=== PATIENT | female | born 1980 | race Caucasian/White ===

== ENCOUNTER 2018-06-10 21:33 | Emergency (ER) | payer BC ==
[2018-06-10] MEDS ORDERED: ONDANSETRON 4 MG (ODT) TAB ONE (22:49)
[2018-06-10] MEDS ORDERED: HYDROCODONE/APAP 5/325 MG TAB ONE (22:49)
[2018-06-10] MEDS ORDERED: KETOROLAC 30 MG/ML INJ ONE (22:49)
--- NOTE | 2018-06-10 23:03 | ER ---
Nurse's Notes [facility] Name: Kaykay Pandey Age: 38 yrs Sex: Female : 1980 Arrival Date: 06/10/2018 Time: 21:35 Bed 24 Private MD: Phillip Peterson E Diagnosis: GASTROCNEMIUS RUPTURE Presentation: 06/10 21:40 Presenting complaint: Patient states: "I was running in soft ball and something popped aj1 in my calf and now when I put any pressure on it it feels like a Lalo horse each time. I'm having a hard time straightening my leg it hurts." Reports pain to the right leg. Transition of care: patient was not received from another setting of care. Onset of symptoms was June 10, 2018 at 21:00. Risk Assessment: Do you want to hurt yourself or someone else? Patient reports no desire to harm self or others. Initial Sepsis Screen: Does the patient meet any 2 criteria? No. Patient's initial sepsis screen is negative. Does the patient have a suspected source of infection? No. Patient's initial sepsis screen is negative. Care prior to arrival: None. 21:40 Method Of Arrival: Wheelchair aj1 21:40 Acuity: BRENDA 4 aj1 Triage Assessment: 21:43 General: Appears in no apparent distress. comfortable, Behavior is calm, cooperative, aj1 appropriate for age. Pain: Complains of pain in medial aspect of right calf Pain currently is 8 out of 10 on a pain scale. Neuro: Level of Consciousness is awake, alert, obeys commands, Oriented to person, place, time, situation. Cardiovascular: Patient's skin is warm and dry. Respiratory: Airway is patent Respiratory effort is even, unlabored, Respiratory pattern is regular, symmetrical. 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 - Ebola Screening: : Patient denies travel to an Ebola-affected area in the 21 days before illness onset. Screenin:10 Abuse screen: Denies threats or abuse. Nutritional screening: No deficits noted. jb4 Tuberculosis screening: No symptoms or risk factors identified. Fall Risk None identified. Assessment: 22:10 General: Appears in no apparent distress. uncomfortable, Behavior is calm, cooperative, jb4 appropriate for age. Pain: Complains of pain in right calf Pain does not radiate. Pain currently is 8 out of 10 on a pain scale. at worst was 10 out of 10 on a pain scale. Quality of pain is described as sharp, Is continuous. Neuro: Level of Consciousness is awake, alert, obeys commands, Oriented to person, place, time, situation. Cardiovascular: Patient's skin is warm and dry. Pulses are 2+ in right dorsalis pedis artery are 3+ in left dorsalis pedis artery. Respiratory: Airway is patent Respiratory effort is even, unlabored, Respiratory pattern is regular, symmetrical. GI: No signs and/or symptoms were reported involving the gastrointestinal system. : No signs and/or symptoms were reported regarding the genitourinary system. EENT: No signs and/or symptoms were reported regarding the EENT system. Derm: Skin is intact, Skin is pink, warm \\T\\ dry. Musculoskeletal: Circulation, motion, and sensation intact. Capillary refill < 3 seconds, in bilateral toes. Range of motion: limited in right ankle. 23:00 Reassessment: Patient appears in no apparent distress at this time. Patient and/or jb4 family updated on plan of care and expected duration. Pain level reassessed. Patient is alert, oriented x 3, equal unlabored respirations, skin warm/dry/pink. Patient states feeling better. Vital Signs: 21:43 BP 114 / 86; Pulse 73; Resp 18; Temp 98.6; Pulse Ox 99% on R/A; Weight 99.79 kg (R); aj1 Height 5 ft. 1 in. (154.94 cm) (R); Pain 8/10; 21:43 Body Mass Index 41.57 (99.79 kg, 154.94 cm) aj1 ED Course: 21:35 Patient arrived in ED. do 21:35 Phillip Peterson MD is Private Physician. do 21:42 Triage completed. aj1 21:43 Arm band placed on Patient placed in an exam room. aj1 21:59 Eric Escobar RN is Primary Nurse. jb4 22:10 Patient has correct armband on for positive identification. Bed in low position. Call jb4 light in reach. Side rails up X 1. Pulse ox on. NIBP on. 22:17 Israel Baca MD is Attending Physician. tw4 22:54 Orthoglass splint: Posterior short lleg splint applied on right leg. Splint checked by jb4 Dr. Baca. 22:59 Phillip Peterson MD is Referral Physician. tw4 23:00 Harris Zurita MD is Referral Physician. tw4 23:00 No provider procedures requiring assistance completed. Patient did not have IV access jb4 during this emergency room visit. Administered Medications: 22:40 Drug: TORadol 60 mg Route: IM; Site: right gluteus; jb4 23:10 Follow up: Response: No adverse reaction; Pain is decreased jb4 22:49 Drug: Zofran 4 mg Route: PO; jb4 06/11 00:08 Follow up: Response: No adverse reaction jb4 06/10 22:50 Drug: [place] 5 mg-325 mg 2 tabs Route: PO; jb4 23:10 Follow up: Response: No adverse reaction; Pain is decreased jb4 Outcome: 23:02 Discharge ordered by . tw4 23:05 Discharged to home with crutches, with family. jb4 23:05 Condition: stable 23:05 Discharge instructions given to patient, family, Instructed on discharge instructions, follow up and referral plans. medication usage, crutch walking, Demonstrated understanding of instructions, follow-up care, medications, Prescriptions given X 3. 06/11 00:09 Patient left the ED. jb4 Signatures: Sara Escobedo RN RN aj1 Tawnya Del Castillo James RN RN jb4 Israel Baca MD MD tw4 Corrections: (The following items were deleted from the chart) 00:52 06/10 23:05 Discharge instructions given to patient, family, Instructed on discharge jb4 instructions, follow up and referral plans. medication usage, crutch walking, Demonstrated understanding of instructions, follow-up care, medications, Prescriptions given X 1, jb4
--- NOTE | 2018-06-10 23:03 | EDPHYS ---
Physician Documentation [facility] Name: Kaykay Pandey Age: 38 yrs Sex: Female : 1980 Arrival Date: 06/10/2018 Time: 21:35 Bed 24 Private MD: Phillip Peterson E ED Physician Israel Baca HPI: 06/11 06:28 This 38 yrs old Female presents to ER via Wheelchair with complaints of Leg tw4 Pain. 06:28 The patient presents with decreased range of motion, an injury. The complaints affect tw4 the right calf. Context: The problem was sustained outdoors, resulted from playing sports, running. Onset: The symptoms/episode began/occurred today. Modifying factors: The symptoms are alleviated by nothing. Associated signs and symptoms: The patient has no apparent associated signs or symptoms. Severity of symptoms: At their worst the symptoms were moderate. The patient has not experienced similar symptoms in the past. 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 - Ebola Screening: : Patient denies travel to an Ebola-affected area in the 21 days before illness onset. ROS: 06/11 06:28 Constitutional: Negative for fever, chills, and weight loss, Eyes: Negative for injury, tw4 pain, redness, and discharge, Cardiovascular: Negative for chest pain, palpitations, and edema, Respiratory: Negative for shortness of breath, cough, wheezing, and pleuritic chest pain, Abdomen/GI: Negative for abdominal pain, nausea, vomiting, diarrhea, and constipation, Back: Negative for injury and pain, Skin: Negative for injury, rash, and discoloration. MS/extremity: Positive for pain, tenderness. Exam: 06:28 Constitutional: This is a well developed, well nourished patient who is awake, alert, tw4 and in no acute distress. Head/Face: Normocephalic, atraumatic. Chest/axilla: Normal chest wall appearance and motion. Nontender with no deformity. No lesions are appreciated. Cardiovascular: Regular rate and rhythm with a normal S1 and S2. No gallops, murmurs, or rubs. Normal PMI, no JVD. No pulse deficits. Respiratory: Lungs have equal breath sounds bilaterally, clear to auscultation and percussion. No rales, rhonchi or wheezes noted. No increased work of breathing, no retractions or nasal flaring. Abdomen/GI: Soft, non-tender, with normal bowel sounds. No distension or tympany. No guarding or rebound. No evidence of tenderness throughout. Neuro: Awake and alert, GCS 15, oriented to person, place, time, and situation. Cranial nerves II-XII grossly intact. Motor strength 5/5 in all extremities. Sensory grossly intact. Cerebellar exam normal. Normal gait. 06:28 Musculoskeletal/extremity: Extremities: grossly normal except: noted in the right calf: decreased ROM, pain. Vital Signs: 06/10 21:43 BP 114 / 86; Pulse 73; Resp 18; Temp 98.6; Pulse Ox 99% on R/A; Weight 99.79 kg (R); aj1 Height 5 ft. 1 in. (154.94 cm) (R); Pain 8/10; 21:43 Body Mass Index 41.57 (99.79 kg, 154.94 cm) [facility] MDM: 22:17 Patient medically screened. tw4 06/11 06:28 Data reviewed: vital signs, nurses notes. Data interpreted: Pulse oximetry:. tw4 Counseling: I had a detailed discussion with the patient and/or guardian regarding: the historical points, exam findings, and any diagnostic results supporting the discharge/admit diagnosis, the presence of at least one elevated blood pressure reading (>120/80) during this emergency department visit. Medication response: Response to treatment: the patient's symptoms have markedly improved after treatment. 06/10 22:31 Order name: Posterior Leg Splint; Complete Time: 22:51 tw4 06/10 22:31 Order name: Crutches; Complete Time: 00:08 tw4 Administered Medications: 06/10 22:40 Drug: TORadol 60 mg Route: IM; Site: right gluteus; 4 23:10 Follow up: Response: No adverse reaction; Pain is decreased jb4 22:49 Drug: Zofran 4 mg Route: PO; jb4 06/11 00:08 Follow up: Response: No adverse reaction jb4 06/10 22:50 Drug: [place] 5 mg-325 mg 2 tabs Route: PO; jb4 23:10 Follow up: Response: No adverse reaction; Pain is decreased jb4 Disposition: 06/10/18 23:02 Discharged to Home. Impression: GASTROCNEMIUS RUPTURE. - Condition is Stable. - Discharge Instructions: Muscle Strain. - Prescriptions for Ibuprofen 800 mg Oral Tablet - take 1 tablet by ORAL route every 8 hours As needed take with food; 30 tablet. Tylenol- Codeine #3 300-30 mg Oral Tablet - take 2 tablet by ORAL route every 6 hours As needed; 6 tablet. Crutches - One pair of Adult crutches. - Medication Reconciliation Form, Thank You Letter, Antibiotic Education, Prescription Opioid Use form. - Follow up: Phillip Peterson MD; When: Upon discharge from the Emergency Department; Reason: If symptoms return, Recheck today's complaints, Continuance of care. Follow up: Harris Zurita MD; When: Upon discharge from the Emergency Department; Reason: If symptoms return, Recheck today's complaints, Continuance of care. - Problem is new. - Symptoms have improved. Signatures: Sara Escobedo RN RN aj1 Eric Escobar RN RN jb4 Israel Baca MD MD tw4 Corrections: (The following items were deleted from the chart) 06/11 00:09 06/10 23:02 06/10/2018 23:02 Discharged to Home. Impression: GASTROCNEMIUS RUPTURE. jb4 Condition is Stable. Forms are Medication Reconciliation Form, Thank You Letter, Antibiotic Education, Prescription Opioid Use. Follow up: Phillip Peterson; When: Upon discharge from the Emergency Department; Reason: If symptoms return, Recheck today's complaints, Continuance of care. Follow up: Harris Zurita; When: Upon discharge from the Emergency Department; Reason: If symptoms return, Recheck today's complaints, Continuance of care. Problem is new. Symptoms have improved. tw4
[2018-06-11 02:04] VITALS: BP 114/86; TEMP 98.6; O2SAT 99
== END 2018-06-11 00:09 | disposition home or self-care (01) ==
LOC: ER 21:33
DX: S86.111A Strain of other muscle(s) and tendon(s) of posterior muscle group at lower leg level, right leg, initial encounter (principal); Y93.79 Activity, other specified sports and athletics; Y93.02 Activity, running; Z88.5 Allergy status to narcotic agent
CPT/HCPCS: 96372; 99284

== ENCOUNTER 2018-07-10 12:29 | Emergency (ER) | payer BC ==
--- NOTE | 2018-07-10 13:20 | ER ---
Nurse's Notes [facility] Name: Kaykay Pandey Age: 38 yrs Sex: Female : 1980 Arrival Date: 07/10/2018 Time: 12:31 Bed 23 Private MD: Diagnosis: Acute laryngitis Presentation: 07/10 12:35 Presenting complaint: Patient states: Sore throat, hoarseness of voice, nasal aj congestion and drainage since Wednesday with reported low grade fever today. Transition of care: patient was not received from another setting of care. Onset of symptoms was July 08, 2018. Risk Assessment: Do you want to hurt yourself or someone else? Patient reports no desire to harm self or others. Initial Sepsis Screen: Does the patient meet any 2 criteria? No. Patient's initial sepsis screen is negative. Does the patient have a suspected source of infection? No. Patient's initial sepsis screen is negative. Care prior to arrival: None. 12:35 Method Of Arrival: Ambulatory aj 12:35 Acuity: BRENDA 4 aj Triage Assessment: 12:36 General: Appears in no apparent distress. comfortable, Behavior is calm, cooperative, aj appropriate for age. Pain: Denies pain. EENT: Reports pain when swallowing. Neuro: Level of Consciousness is awake, alert, obeys commands, Oriented to person, place, time, situation, Appropriate for age. Respiratory: Reports cough that is Airway is patent Respiratory effort is even, unlabored, Respiratory pattern is regular, symmetrical. Derm: Skin is pink, warm \T\ dry. normal. 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 - Social history:: Smoking status: Patient/guardian denies using tobacco. - Ebola Screening: : Patient negative for fever greater than or equal to 101.5 degrees Fahrenheit, and additional compatible Ebola Virus Disease symptoms Patient denies exposure to infectious person Patient denies travel to an Ebola-affected area in the 21 days before illness onset No symptoms or risks identified at this time. Screenin:45 Abuse screen: Denies threats or abuse. Abuse screen: Denies threats or abuse. la1 Nutritional screening: No deficits noted. Tuberculosis screening: No symptoms or risk factors identified. Fall Risk None identified. Assessment: 12:45 General: Appears in no apparent distress. Behavior is calm, cooperative. Neuro: Level la1 of Consciousness is awake, alert, obeys commands, Oriented to person, place, time, situation. Cardiovascular: Capillary refill < 3 seconds Patient's skin is warm and dry. Respiratory: Airway is patent Respiratory effort is even, unlabored, Respiratory pattern is regular, symmetrical, Breath sounds are clear bilaterally. EENT: Throat is reddened. Vital Signs: 12:36 BP 134 / 64; Pulse 77; Resp 18; Temp 98.6; Pulse Ox 98% on R/A; Weight 99.79 kg; Height aj 5 ft. 1 in. (154.94 cm); 12:36 Body Mass Index 41.57 (99.79 kg, 154.94 cm) aj ED Course: 12:31 Patient arrived in ED. as 12:33 Ny Castro FNP-C is PHCP. snw 12:33 Augustin Jenkins MD is Attending Physician. snw 12:36 Triage completed. aj 12:36 Arm band placed on right wrist. Patient placed in an exam room. aj 12:44 Rafael Gleason, VALERIY is Primary Nurse. la1 12:44 Strep Sent. la1 12:45 Call light in reach. Side rails up X 1. la1 12:45 Flu Sent. la1 12:46 No provider procedures requiring assistance completed. Patient did not have IV access la1 during this emergency room visit. Administered Medications: 13:42 Drug: predniSONE 60 mg Route: PO; la1 13:42 Follow up: Response: Medication administered at discharge. la1 13:42 Drug: Pepcid 20 mg Route: PO; la1 13:43 Follow up: Response: Medication administered at discharge. la1 Outcome: 13:19 Discharge ordered by . snw 13:43 Discharged to home ambulatory. la1 13:43 Condition: stable 13:43 Discharge instructions given to patient, Instructed on discharge instructions, follow up and referral plans. medication usage, Demonstrated understanding of instructions, follow-up care, medications, Prescriptions given X 1. 13:43 Patient left the ED. la1 Signatures: Telma Denise RN RN Ny Bradley, METER/RELAY CRAFTSMAN-C METER/RELAY CRAFTSMAN-Csnw Tamara Andino Lee, RN RN la1
--- NOTE | 2018-07-10 13:20 | EDPHYS ---
Physician Documentation [facility] Name: Kaykay Pandey Age: 38 yrs Sex: Female : 1980 Arrival Date: 07/10/2018 Time: 12:31 Bed 23 Private MD: ED Physician Augustin Jenkins HPI: 07/10 13:12 This 38 yrs old Female presents to ER via Ambulatory with complaints of snw Fever, Sore Throat. 13:12 The patient reports fever, not measured (subjective). Onset: The symptoms/episode snw began/occurred suddenly, 3 day(s) ago. Severity of symptoms: At their worst the symptoms were moderate. It is unknown whether or not the patient has had similar symptoms in the past. It is unknown whether or not the patient has recently seen a physician. 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 - Social history:: Smoking status: Patient/guardian denies using tobacco. - Ebola Screening: : Patient negative for fever greater than or equal to 101.5 degrees Fahrenheit, and additional compatible Ebola Virus Disease symptoms Patient denies exposure to infectious person Patient denies travel to an Ebola-affected area in the 21 days before illness onset No symptoms or risks identified at this time. ROS: 13:11 Eyes: Negative for injury, pain, redness, and discharge. snw 13:11 Neck: Negative for injury, pain, and swelling, Cardiovascular: Negative for chest pain, palpitations, and edema, Abdomen/GI: Negative for abdominal pain, nausea, vomiting, diarrhea, and constipation, Back: Negative for injury and pain, : Negative for injury, bleeding, discharge, and swelling, MS/Extremity: Negative for injury and deformity, Skin: Negative for injury, rash, and discoloration, Neuro: Negative for headache, weakness, numbness, tingling, and seizure. 13:11 Constitutional: Positive for fatigue, fever, malaise. 13:11 ENT: Positive for sore throat. 13:11 Respiratory: Positive for cough. Exam: 13:11 Constitutional: This is a well developed, well nourished patient who is awake, alert, snw and in no acute distress. Head/Face: Normocephalic, atraumatic. Eyes: Pupils equal round and reactive to light, extra-ocular motions intact. Lids and lashes normal. Conjunctiva and sclera are non-icteric and not injected. Cornea within normal limits. Periorbital areas with no swelling, redness, or edema. Neck: Trachea midline, no thyromegaly or masses palpated, and no cervical lymphadenopathy. Supple, full range of motion without nuchal rigidity, or vertebral point tenderness. No Meningismus. Chest/axilla: Normal chest wall appearance and motion. Nontender with no deformity. No lesions are appreciated. Cardiovascular: Regular rate and rhythm with a normal S1 and S2. No gallops, murmurs, or rubs. Normal PMI, no JVD. No pulse deficits. Respiratory: Lungs have equal breath sounds bilaterally, clear to auscultation and percussion. No rales, rhonchi or wheezes noted. No increased work of breathing, no retractions or nasal flaring. Abdomen/GI: Soft, non-tender, with normal bowel sounds. No distension or tympany. No guarding or rebound. No evidence of tenderness throughout. Back: No spinal tenderness. No costovertebral tenderness. Full range of motion. Skin: Warm, dry with normal turgor. Normal color with no rashes, no lesions, and no evidence of cellulitis. MS/ Extremity: Pulses equal, no cyanosis. Neurovascular intact. Full, normal range of motion. Neuro: Awake and alert, GCS 15, oriented to person, place, time, and situation. Cranial nerves II-XII grossly intact. Motor strength 5/5 in all extremities. Sensory grossly intact. Cerebellar exam normal. Normal gait. Psych: Awake, alert, with orientation to person, place and time. Behavior, mood, and affect are within normal limits. 13:11 ENT: External ear(s): are unremarkable, TM's: are normal, Nose: is normal, Mouth: is normal, Posterior pharynx: erythema, that is mild, Voice: is hoarse. Vital Signs: 12:36 BP 134 / 64; Pulse 77; Resp 18; Temp 98.6; Pulse Ox 98% on R/A; Weight 99.79 kg; Height aj 5 ft. 1 in. (154.94 cm); 12:36 Body Mass Index 41.57 (99.79 kg, 154.94 cm) aj MDM: 12:39 Patient medically screened. snw 13:19 Data reviewed: vital signs, nurses notes. Data interpreted: Pulse oximetry: on room air snw is 98 %. Interpretation: normal. Counseling: I had a detailed discussion with the patient and/or guardian regarding: the historical points, exam findings, and any diagnostic results supporting the discharge/admit diagnosis, lab results, the need for outpatient follow up, to return to the emergency department if symptoms worsen or persist or if there are any questions or concerns that arise at home. Special discussion: Based on the history and exam findings, there is no indication for further emergent testing or inpatient evaluation. I discussed with the patient/guardian the need to see the primary care provider for further evaluation of the symptoms. 07/10 12:33 Order name: Flu; Complete Time: 13:18 snw 07/10 12:33 Order name: Strep; Complete Time: 13:18 snw 07/10 13:23 Order name: Throat Culture EDMS Administered Medications: 13:42 Drug: predniSONE 60 mg Route: PO; la1 13:42 Follow up: Response: Medication administered at discharge. la1 13:42 Drug: Pepcid 20 mg Route: PO; la1 13:43 Follow up: Response: Medication administered at discharge. la1 Disposition: 07/11 09:09 Co-signature as Attending Physician, Augustin Jenkins MD I agree with the assessment and trice plan of care. Disposition: 07/10/18 13:19 Discharged to Home. Impression: Acute laryngitis. - Condition is Stable. - Discharge Instructions: Laryngitis, Upper Respiratory Infection, Adult, Form - Return To Work. - Prescriptions for Prednisone 20 mg Oral Tablet - take 2 tablet by ORAL route once daily for 5 days; 10 tablet. - Medication Reconciliation Form, Thank You Letter, Antibiotic Education, Prescription Opioid Use form. - Follow up: Private Physician; When: 2 - 3 days; Reason: Recheck today's complaints, Continuance of care, Re-evaluation by your physician. Follow up: Emergency Department; When: As needed; Reason: Worsening of condition. Signatures: Dispatcher [employer] EDTelma Rodriguez, RN RN Augustin Sanders MD MD cha Therrien, Shelly, LCAC RADAR OPERATOR/NAVIGATOR-C LCAC RADAR OPERATOR/NAVIGATOR-Csnw Rafael Gleason, RN RN la1 Corrections: (The following items were deleted from the chart) 07/10 13:43 13:19 07/10/2018 13:19 Discharged to Home. Impression: Acute laryngitis. Condition is la1 Stable. Discharge Instructions: Laryngitis, Upper Respiratory Infection, Adult, Form - Return To Work. Prescriptions for Prednisone 20 mg Oral Tablet - take 2 tablet by ORAL route once daily for 5 days; 10 tablet. and Forms are Medication Reconciliation Form, Thank You Letter, Antibiotic Education, Prescription Opioid Use. Follow up: Private Physician; When: 2 - 3 days; Reason: Recheck today's complaints, Continuance of care, Re-evaluation by your physician. Follow up: Emergency Department; When: As needed; Reason: Worsening of condition. snw
[2018-07-10] MEDS ORDERED: predniSONE 20 MG TAB ONE (13:52)
[2018-07-10] MEDS ORDERED: FAMOTIDINE 20 MG TAB ONE (13:53)
[2018-07-10 14:04] VITALS: BP 134/64; TEMP 98.6; O2SAT 98
== END 2018-07-10 13:43 | disposition home or self-care (01) ==
LOC: ER 12:29
DX: J04.0 Acute laryngitis (principal); Z88.5 Allergy status to narcotic agent
CPT/HCPCS: 87070; 87081; 87804; 99283; J7512